=== PATIENT | female | born 1995 | race Caucasian/White ===

== ENCOUNTER 2020-06-20 06:59 | Inpatient (IN) | payer OTHER ==
[2020-06-20] MEDS ORDERED: Sodium Chloride 0.9% 10 ML Syringe FLUSH PRN (07:12)
[2020-06-20] MEDS ORDERED: Nalbuphine 10 MG/ML Syringe IVPUSH PRN (07:12)
[2020-06-20] MEDS ORDERED: Oxytocin/Lactated Ringers 10 UNIT/1,000 ML BAG IV SCH ×2 (07:15)
--- NOTE | 2020-06-20 07:32 | PCM.LDHP ---
L&D History of Present Illness - General Date of Service: 06/20/20 Admit Problem/Dx: Patient Status Order with Admit Dx/Problem 06/20/20 07:13 Patient Status [ADT] Routine Admission Diagnosis/Problem Admission Diagnosis/Problem - History of Present Illness Introduction:: 25 year old female at 40w4d here for induction of labor. PNC with myself without complications. H&P Review of Systems - Review of Systems: Review Of Systems: See Below General: Reports: No Symptoms HEENT: Reports: No Symptoms Pulmonary: Reports: No Symptoms Cardiovascular: Reports: No Symptoms Gastrointestinal: Reports: No Symptoms Genitourinary: Reports: No Symptoms Musculoskeletal: Reports: No Symptoms Skin: Reports: No Symptoms Psychiatric: Reports: No Symptoms Neurological: Reports: No Symptoms Hematologic/Lymphatic: Reports: No Symptoms Immunologic: Reports: No Symptoms L&D Exam - Exam Exam: See Below - OB Specific Contraction Intensity: Irritability Movement: Active Heart Tones: Present Heart Tones per Min: 145 Presentation: Vertex - Exam General: Alert, Oriented HEENT: PERRLA, Conjunctiva Clear, EACs Clear, EOMI, Hearing Intact, Mucosa Moist & [place], Nares Patent, Normal Nasal Septum, Posterior Pharynx Clear, TMs Clear Neck: Supple, Trachea Midline Lungs: Clear to Auscultation, Normal Respiratory Effort Cardiovascular: Regular Rate, Regular Rhythm GI/Abdominal Exam: Normal Bowel Sounds, Soft, Non-Tender, No Organomegaly, No Distention, No Abnormal Bruit, No Mass, Pelvis Stable Back Exam: Normal Inspection, Full Range of Motion Extremities: Normal Inspection, Normal Range of Motion, Non-Tender, No Pedal Edema, Normal Capillary Refill Skin: Warm, Dry, Intact Neurological: Cranial Nerves Intact, Reflexes Equal Bilateral Psychiatric: Alert, Normal Affect, Normal Mood Problem List Initiated/Reviewed/Updated: Yes Orders Last 24hrs: Active Orders 24 hr Category Date Time Status Patient Status [ADT] Routine ADT 06/20/20 07:13 Active Activity as Tolerated [RC] PFP Care 06/20/20 07:13 Active Communication Order [RC] ASDIRECTED Care 06/20/20 07:13 Active Heart Tones [RC] ASDIRECTED Care 06/20/20 07:13 Active Non Stress Test [RC] PER UNIT ROUTINE Care 06/20/20 07:13 Active Notify Provider [RC] PFP Care 06/20/20 07:13 Active Notify Provider [RC] PRN Care 06/20/20 07:13 Active Peripheral IV Care [RC] . DIRECTED Care 06/20/20 07:13 Active Vital Signs [RC] PER UNIT ROUTINE Care 06/20/20 07:13 Active Regular Diet [DIET] Diet 06/20/20 Breakfast Active CBC WITH AUTO DIFF [HEME] Stat Lab 06/20/20 07:12 Ordered CORONAVIRUS COVID-19 HARRY [MOLEC] Stat Lab 06/20/20 07:15 Ordered RAPID PLASMA REAGIN,RPR [CHEM] Routine Lab 06/20/20 07:13 Ordered TYPE AND SCREEN [BBK] Stat Lab 06/20/20 07:12 Ordered Lactated Ringers [Ringers, Lactated] 1,000 ml Med 06/20/20 07:15 Active IV ASDIRECTED Nalbuphine [Nubain] Med 06/20/20 07:12 Active 10 mg IVPUSH Q2H PRN Oxytocin/Lactated Ringers [Pitocin in LR 10 Units/1,000 Med 06/20/20 07:15 Active ML] 10 unit in 1,000 ml IV .CONTINUOUS Oxytocin/Lactated Ringers [Pitocin in LR 10 Units/1,000 Med 06/20/20 07:15 Ordered ML] 10 unit in 1,000 ml IV TITRATE Sodium Chloride 0.9% [Saline Flush] Med 06/20/20 07:12 Active 10 ml FLUSH ASDIRECTED PRN Electronic Heart Tones Ext w TOCO [WOMSER] Oth 06/20/20 07:13 Ordered Routine Electronic Heart Tones Internal [WOMSER] Per Unit Oth 06/20/20 07:13 Ordered Routine Peripheral IV Insertion Adult [OM.PC] Routine Oth 06/20/20 07:13 Ordered Resuscitation Status Routine Resus Stat 06/20/20 07:12 Ordered Medication Orders Oxytocin/Lactated Ringer's (Pitocin In Lr 10 Units/1,000 Ml) 10 unit in 1,000 mls @ 12 mls/hr IV TITRATE DE; Protocol Oxytocin/Lactated Ringer's (Pitocin In Lr 10 Units/1,000 Ml) 10 unit in 1,000 mls @ 500 mls/hr IV .CONTINUOUS DE Lactated Ringer's (Ringers, Lactated) 1,000 mls @ 100 mls/hr IV ASDIRECTED DE Nalbuphine HCl (Nubain) 10 mg IVPUSH Q2H PRN PRN Reason: Pain Sodium Chloride (Saline Flush) 10 ml FLUSH ASDIRECTED PRN PRN Reason: Keep Vein Open Assessment/Plan Comment:: Term induction. History of prior 6#7oz . AROM. Pitocin as needed. Epidural if pt request. Anticipate .
[2020-06-20] MEDS ORDERED: Misoprostol 25 MCG (1/4 of 100 MCG) Tab VAG ONE (07:45)
[2020-06-20] MEDS: Lactated Ringers 1,000 ML IV SCH ×3 (12:42→15:45)
[2020-06-20] MEDS ORDERED: ePHEDrine 50 MG/ML SDV IVPUSH PRN (14:00)
[2020-06-20] MEDS ORDERED: fentaNYL 100 MCG/2 ML SDV EPIDUR PRN (14:00)
[2020-06-20] MEDS ORDERED: Bupivacaine/fentaNYL/NS 100 ML Bag EPIDUR PRN (14:00)
[2020-06-20] MEDS ORDERED: diphenhydrAMINE 50 MG/ML SDV IVPUSH PRN (14:00)
--- NOTE | 2020-06-20 14:37 | PCM.PREANE ---
Preanesthetic Assessment - Procedure Proposed Procedure: Continuous labor epidural - Anesthesia/Transfusion/Family Hx Anesthesia History: Prior Anesthesia Without Reaction Transfusion History: Unknown Additional History: No previous difficulties with anesthesia or with intubation per patient - Review of Systems General: No Symptoms Pulmonary: No Symptoms Cardiovascular: No Symptoms Gastrointestinal: Other (GERD with ) Neurological: No Symptoms - Physical Assessment NPO Status Date: 06/20/20 (Full stomach) Vital Signs: Last Vital Signs Temp 36.4 C 06/20/20 07:13 Pulse 99 06/20/20 07:13 Resp 16 06/20/20 07:13 BP 114/74 06/20/20 07:13 Pulse Ox 100 06/20/20 07:13 Height: 5 ft 8 in Weight: 102.33 kg ASA Class: 1 Mental Status: Alert & Oriented x3 Airway Class: Mallampati = 2 Dentition: Reports: Normal Dentition Thyro-Mental Finger Breadths: 3 Mouth Opening Finger Breadths: 3 ROM/Head Extension: Full Lungs: Clear to Auscultation, Normal Respiratory Effort Cardiovascular: Regular Rate, Regular Rhythm - Lab Values: Laboratory Last Values WBC 12.33 K/mm3 (3.98-10.04) H 06/20/20 07:25 RBC 4.42 M/mm3 (3.98-5.22) 06/20/20 07:25 Hgb 12.2 gm/dl (11.2-15.7) 06/20/20 07:25 Hct 38.7 % (34.1-44.9) 06/20/20 07:25 MCV 87.6 fl (79.4-94.8) 06/20/20 07:25 MCH 27.6 pg (25.6-32.2) 06/20/20 07:25 MCHC 31.5 g/dl (32.2-35.5) L 06/20/20 07:25 RDW Std Deviation 43.1 fL (36.4-46.3) 06/20/20 07:25 Plt Count 291 K/mm3 (182-369) 06/20/20 07:25 MPV 9.8 fl (9.4-12.3) 06/20/20 07:25 Neut % (Auto) 68.2 % (34.0-71.1) 06/20/20 07:25 Lymph % (Auto) 21.5 % (19.3-51.7) 06/20/20 07:25 [place] % (Auto) 6.7 % (4.7-12.5) 06/20/20 07:25 Eos % (Auto) 1.9 (0.7-5.8) 06/20/20 07:25 Baso % (Auto) 0.3 % (0.1-1.2) 06/20/20 07:25 Neut # (Auto) 8.42 K/mm3 (1.56-6.13) H 06/20/20 07:25 Lymph # (Auto) 2.65 K/mm3 (1.18-3.74) 06/20/20 07:25 [place] # (Auto) 0.82 K/mm3 (0.24-0.36) H 06/20/20 07:25 Eos # (Auto) 0.23 K/mm3 (0.04-0.36) 06/20/20 07:25 Baso # (Auto) 0.04 K/mm3 (0.01-0.08) 06/20/20 07:25 Manual Slide Review Normal smear 06/20/20 07:25 SARS-CoV-2 RNA (HARRY) Negative (NEGATIVE) 06/20/20 07:42 Blood Type A NEGATIVE 06/20/20 07:25 Gel Antibody Screen Negative 06/20/20 07:25 - Allergies Allergies/Adverse Reactions: Allergies Allergy/AdvReac Type Severity Reaction Status Date / Time No Known Allergies Allergy Verified 06/20/20 07:49 - Acknowledgements Anesthesia Type Planned: Epidural Pt an Appropriate Candidate for the Planned Anesthesia: Yes Alternatives and Risks of Anesthesia Discussed w Pt/Guardian: Yes Pt/Guardian Understands and Agrees with Anesthesia Plan: Yes PreAnesthesia Questionnaire [employer] History: Reports: - SUBSTANCE USE Tobacco Use Status *Q: Never Tobacco User Tobacco Use Within Last Twelve Months: No Second Hand Smoke Exposure: No Recreational Drug Use History: No - HOME MEDS Home Medications: Home Meds Vits #93/Iron Fum/FA [ Formula Tablet] 1 tab PO DAILY 06/20/20 [History] - CURRENT (IN HOUSE) MEDS Current Meds: Current Medications Diphenhydramine HCl (Benadryl) 25 mg IVPUSH Q6H PRN PRN Reason: pruritis Ephedrine Sulfate (Ephedrine Sulfate) 5 mg IVPUSH ASDIRECTED PRN PRN Reason: Hypotension Fentanyl (Sublimaze) 100 mcg EPIDUR Q3H PRN PRN Reason: Pain Last Admin: 06/20/20 14:08 Dose: 100 mcg Documented by: Fentanyl/Bupivacaine HCl (Fentanyl/Bupivacaine/Ns 2 Mcg-0.125% 100 Ml) 100 ml EPIDUR ASDIRECTED PRN PRN Reason: Pain Last Admin: 06/20/20 14:08 Dose: 100 ml Documented by: Oxytocin/Lactated Ringer's (Pitocin In Lr 10 Units/1,000 Ml) 10 unit in 1,000 mls @ 12 mls/hr IV TITRATE [place]; Protocol Last Admin: 06/20/20 12:42 Dose: 2 munits/min, 12 mls/hr Documented by: Oxytocin/Lactated Ringer's (Pitocin In Lr 10 Units/1,000 Ml) 10 unit in 1,000 mls @ 500 mls/hr IV .CONTINUOUS DE Lactated Ringer's (Ringers, Lactated) 1,000 mls @ 100 mls/hr IV ASDIRECTED DE Last Admin: 06/20/20 14:08 Dose: 100 mls/hr Documented by: Nalbuphine HCl (Nubain) 10 mg IVPUSH Q2H PRN PRN Reason: Pain Sodium Chloride (Saline Flush) 10 ml FLUSH ASDIRECTED PRN PRN Reason: Keep Vein Open Discontinued Medications Misoprostol (Cytotec) 25 mcg VAG ONETIME ONE Stop: 06/20/20 07:46 Last Admin: 06/20/20 07:53 Dose: 25 mcg Documented by:
--- NOTE | 2020-06-20 16:55 | PCM.PNLD ---
Labor Progress Note - VS & Meds Vital Signs: Last Vital Signs Temp 36.4 C 06/20/20 07:13 Pulse 99 06/20/20 07:13 Resp 16 06/20/20 07:13 BP 114/74 06/20/20 07:13 Pulse Ox 100 06/20/20 07:13 Active Medications: Current Medications Diphenhydramine HCl (Benadryl) 25 mg IVPUSH Q6H PRN PRN Reason: pruritis Ephedrine Sulfate (Ephedrine Sulfate) 5 mg IVPUSH ASDIRECTED PRN PRN Reason: Hypotension Fentanyl (Sublimaze) 100 mcg EPIDUR Q3H PRN PRN Reason: Pain Last Admin: 06/20/20 14:08 Dose: 100 mcg Documented by: Fentanyl/Bupivacaine HCl (Fentanyl/Bupivacaine/Ns 2 Mcg-0.125% 100 Ml) 100 ml EPIDUR ASDIRECTED PRN PRN Reason: Pain Last Admin: 06/20/20 14:08 Dose: 100 ml Documented by: Oxytocin/Lactated Ringer's (Pitocin In Lr 10 Units/1,000 Ml) 10 unit in 1,000 mls @ 12 mls/hr IV TITRATE DE; Protocol Last Titration: 06/20/20 15:15 Dose: 6 munits/min, 36 mls/hr Documented by: Oxytocin/Lactated Ringer's (Pitocin In Lr 10 Units/1,000 Ml) 10 unit in 1,000 mls @ 500 mls/hr IV .CONTINUOUS DE Lactated Ringer's (Ringers, Lactated) 1,000 mls @ 100 mls/hr IV ASDIRECTED DE Last Admin: 06/20/20 15:45 Dose: 100 mls/hr Documented by: Nalbuphine HCl (Nubain) 10 mg IVPUSH Q2H PRN PRN Reason: Pain Sodium Chloride (Saline Flush) 10 ml FLUSH ASDIRECTED PRN PRN Reason: Keep Vein Open Discontinued Medications Misoprostol (Cytotec) 25 mcg VAG ONETIME ONE Stop: 06/20/20 07:46 Last Admin: 06/20/20 07:53 Dose: 25 mcg Documented by: - Uterine Contractions Contraction Intensity: Irritability Uterine Resting Tone: Soft - Vaginal Exam Dilation (cm): 2 Effacement (Percent): 80 Station: -2 Cervical Position: Anterior - Labor Progress (Free Text) Labor Progress: Progressing well after cytotec. Initiate pitocin. AROM.
--- NOTE | 2020-06-20 17:06 | PCM.SN.2 ---
- Free Text/Narrative Note: Stage 1 - presented for induction of labor. Cytotec. AROM and pitocin 4 hours later. Progressed to complete with overall reassuring heart tones. f Stage II - Rapid into bed as I was getting gloves on of a viable female, weight 6#15 oz, 8/9 APGARS at 1646. To maternal abdomen. I clamped and cut cord. Positive cry. Stage III - of intact placenta. 3vc. No laceration. EBL 100.
--- NOTE | 2020-06-20 17:06 | PCM.SN.2 ---
- Free Text/Narrative Note: duplicate as meditech crashed briefly
[2020-06-20] MEDS ORDERED: Hydrocortisone Acetate 25 MG Supp RECTAL PRN (17:28)
[2020-06-20] MEDS ORDERED: Witch Hazel Medicated Pads 40/Jar TOP PRN (17:28)
[2020-06-20] MEDS ORDERED: Benzocaine/Menthol 20%-0.5% Spray 56 GM Canister TOP PRN (17:28)
[2020-06-20] MEDS: Ibuprofen 600 MG Tab PO PRN (19:52)
[2020-06-21] MEDS: Ibuprofen 600 MG Tab PO PRN (07:05)
--- NOTE | 2020-06-21 07:09 | PCM.DCSUM1 ---
Discharge Summary - Hospital Course Brief History: Admitted for IOL, uncomplicated Diagnosis: Stroke: No - Discharge Data Discharge Date: 06/21/20 Discharge Disposition: Home, Self-Care 01 Condition: Good - Referral to Home Health Primary Care Physician: Patricia Paige MD - Patient Summary/Data Hospital Course: Stage 1 - presented for induction of labor. Cytotec. AROM and pitocin 4 hours later. Progressed to complete with overall reassuring heart tones. f Stage II - Rapid into bed as I was getting gloves on of a viable female, weight 6#15 oz, 8/9 APGARS at 1646. To maternal abdomen. I clamped and cut cord. Positive cry. Stage III - of intact placenta. 3vc. No laceration. EBL 100. Uncomplicated course - Patient Instructions Driving: May Drive Today Driving, Other: Showering/Bathing: May Shower Notify Provider of: Fever, Increased Pain, Swelling and Redness, Drainage, Nausea and/or Vomiting - Discharge Plan *PRESCRIPTION DRUG MONITORING PROGRAM REVIEWED*: No *COPY OF PRESCRIPTION DRUG MONITORING REPORT IN PATIENT PAMELA: No Home Medications: Home Meds Vits #93/Iron Fum/FA [ Formula Tablet] 1 tab PO DAILY 06/20/20 [History] - Discharge Summary/Plan Comment DC Time >30 min.: No - Patient Data Vitals - Most Recent: Last Vital Signs Temp 36.7 C 06/21/20 03:22 Pulse 66 06/21/20 03:22 Resp 14 06/21/20 03:22 BP 108/65 06/21/20 03:22 Pulse Ox 96 06/21/20 03:22 Weight - Most Recent: 102.33 kg I&O - Last 24 hours: Intake & Output 06/20/20 06/21/20 06/21/20 22:59 06:59 14:59 Intake Total 3820 Balance 3820 Lab Results - Last 24 hrs: Laboratory Results - last 24 hr 06/20/20 06/20/20 06/20/20 Range/Units 07:25 07:25 07:25 WBC 12.33 H (3.98-10.04) K/mm3 RBC 4.42 (3.98-5.22) M/mm3 Hgb 12.2 (11.2-15.7) gm/dl Hct 38.7 (34.1-44.9) % MCV 87.6 (79.4-94.8) fl MCH 27.6 (25.6-32.2) pg MCHC 31.5 L (32.2-35.5) g/dl RDW Std Deviation 43.1 (36.4-46.3) fL Plt Count 291 (182-369) K/mm3 MPV 9.8 (9.4-12.3) fl Neut % (Auto) 68.2 (34.0-71.1) % Lymph % (Auto) 21.5 (19.3-51.7) % [place] % (Auto) 6.7 (4.7-12.5) % Eos % (Auto) 1.9 (0.7-5.8) Baso % (Auto) 0.3 (0.1-1.2) % Neut # (Auto) 8.42 H (1.56-6.13) K/mm3 Lymph # (Auto) 2.65 (1.18-3.74) K/mm3 [place] # (Auto) 0.82 H (0.24-0.36) K/mm3 Eos # (Auto) 0.23 (0.04-0.36) K/mm3 Baso # (Auto) 0.04 (0.01-0.08) K/mm3 Manual Slide Review Normal smear RPR Non-reactive (NONREACTIVE) SARS-CoV-2 RNA (HARRY) (NEGATIVE) Blood Type A NEGATIVE Gel Antibody Screen Negative 06/20/20 Range/Units 07:42 WBC (3.98-10.04) K/mm3 RBC (3.98-5.22) M/mm3 Hgb (11.2-15.7) gm/dl Hct (34.1-44.9) % MCV (79.4-94.8) fl MCH (25.6-32.2) pg MCHC (32.2-35.5) g/dl RDW Std Deviation (36.4-46.3) fL Plt Count (182-369) K/mm3 MPV (9.4-12.3) fl Neut % (Auto) (34.0-71.1) % Lymph % (Auto) (19.3-51.7) % [place] % (Auto) (4.7-12.5) % Eos % (Auto) (0.7-5.8) Baso % (Auto) (0.1-1.2) % Neut # (Auto) (1.56-6.13) K/mm3 Lymph # (Auto) (1.18-3.74) K/mm3 [place] # (Auto) (0.24-0.36) K/mm3 Eos # (Auto) (0.04-0.36) K/mm3 Baso # (Auto) (0.01-0.08) K/mm3 Manual Slide Review RPR (NONREACTIVE) SARS-CoV-2 RNA (HARRY) Negative (NEGATIVE) Blood Type Gel Antibody Screen Med Orders - Current: Current Medications Benzocaine/Menthol (Dermoplast Pain Relief [place]) 0 gm TOP ASDIRECTED PRN PRN Reason: Perineal Comfort Measure Last Admin: 06/20/20 19:51 Dose: 1 can Documented by: Hydrocortisone Acetate (Anucort-Hc) 25 mg RECTAL BID PRN PRN Reason: Hemorrhoid pain Ibuprofen (Motrin) 600 mg PO Q6H PRN PRN Reason: Mild pain or fever Last Admin: 06/21/20 07:05 Dose: 600 mg Documented by: Yahaira Moreno ([facility]) 1 pad TOP ASDIRECTED PRN PRN Reason: Pain Last Admin: 06/20/20 19:51 Dose: 1 tub Documented by: Discontinued Medications Diphenhydramine HCl (Benadryl) 25 mg IVPUSH Q6H PRN PRN Reason: pruritis Ephedrine Sulfate (Ephedrine Sulfate) 5 mg IVPUSH ASDIRECTED PRN PRN Reason: Hypotension Fentanyl (Sublimaze) 100 mcg EPIDUR Q3H PRN PRN Reason: Pain Last Admin: 06/20/20 14:08 Dose: 100 mcg Documented by: Fentanyl/Bupivacaine HCl (Fentanyl/Bupivacaine/Ns 2 Mcg-0.125% 100 Ml) 100 ml EPIDUR ASDIRECTED PRN PRN Reason: Pain Last Admin: 06/20/20 14:08 Dose: 100 ml Documented by: Oxytocin/Lactated Ringer's (Pitocin In Lr 10 Units/1,000 Ml) 10 unit in 1,000 mls @ 12 mls/hr IV TITRATE DE; Protocol Last Titration: 06/20/20 16:46 Dose: 500 munits/min, 3,000 mls/hr Documented by: Oxytocin/Lactated Ringer's (Pitocin In Lr 10 Units/1,000 Ml) 10 unit in 1,000 mls @ 500 mls/hr IV .CONTINUOUS DE Lactated Ringer's (Ringers, Lactated) 1,000 mls @ 100 mls/hr IV ASDIRECTED DE Last Admin: 06/20/20 15:45 Dose: 100 mls/hr Documented by: Misoprostol (Cytotec) 25 mcg VAG ONETIME ONE Stop: 06/20/20 07:46 Last Admin: 06/20/20 07:53 Dose: 25 mcg Documented by: Nalbuphine HCl (Nubain) 10 mg IVPUSH Q2H PRN PRN Reason: Pain Sodium Chloride (Saline Flush) 10 ml FLUSH ASDIRECTED PRN PRN Reason: Keep Vein Open
[2020-06-21] MEDS ORDERED: Acetaminophen 325 MG Tab PO PRN (14:55)
--- NOTE | 2020-06-22 19:01 | PCM48HPAN ---
Post Anesthesia Note - EVALUATION WITHIN 48HRS OF ANESTHETIC Vital Signs in Normal Range: Yes Patient Participated in Evaluation: No Respiratory Function Stable: Yes Airway Patent: Yes Cardiovascular Function Stable: Yes Hydration Status Stable: Yes Pain Control Satisfactory: Yes Nausea and Vomiting Control Satisfactory: Yes Mental Status Recovered: Yes Vital Signs: Last Vital Signs Temp 36.2 C 06/21/20 14:58 Pulse 76 06/21/20 14:58 Resp 16 06/21/20 14:58 BP 107/63 06/21/20 14:58 Pulse Ox 96 06/21/20 14:58 - COMMENTS/OBSERVATIONS Free Text/Narrative:: Routine recovery post-epidural and delivery. No concerns expressed from nursing.
== END 2020-06-21 17:45 | disposition home or self-care (01) | DRG 807 ==
LOC: JD.OB 06:59 → OBSVTOIN 16:46 → JD.OB 16:47
PROVIDERS: ADMIT Obstetrics & Gynecology; ATTEND Obstetrics & Gynecology
PROC: 10E0XZZ Delivery of Products of Conception, External Approach (ICD-10-PCS; principal; 2020-06-20)
PROC: 10907ZC Drainage of Amniotic Fluid, Therapeutic from Products of Conception, Via Natural or Artificial Opening (ICD-10-PCS; 2020-06-20)
PROC: 3E033VJ Introduction of Other Hormone into Peripheral Vein, Percutaneous Approach (ICD-10-PCS; 2020-06-20)
PROC: 3E0P7VZ Introduction of Hormone into Female Reproductive, Via Natural or Artificial Opening (ICD-10-PCS; 2020-06-20)
DX: O80 Encounter for full-term uncomplicated delivery (principal); Z37.0 Single live birth; Z3A.40 40 weeks gestation of pregnancy; Z20.828 Contact with and (suspected) exposure to other viral communicable diseases
CPT/HCPCS: 36415; 51702; 59025; 59409; 85025; 86592; 86850; 86900; 86901; A9270-GY; J2590; J3010; J7120; U0002

== ENCOUNTER 2023-11-25 08:51 | Emergency (ER) | payer BC, OTHER ==
[2023-11-25] MEDS: Morphine 4 MG/ML Syringe IM ONE (10:06)
== END 2023-11-25 10:23 | disposition home or self-care (01) ==
LOC: JD.ED 08:51
DX: S16.1XXA Strain of muscle, fascia and tendon at neck level, initial encounter (principal); X50.0XXA Overexertion from strenuous movement or load, initial encounter
CPT/HCPCS: 96372; 99283; J2270